=== PATIENT | male | born 1940 | race Caucasian/White ===

== ENCOUNTER → 2020-02-04 | Emergency (ER) | payer BC, OTHER ==
[~2020-02-04] VITALS: Ht 172.7 cm; Wt 113.4 kg
[~2020-02-04] MED LIST: CALCIUM CHLOR(10%) 100MG/ML 10ML SYRINGE IV ONE; DEXTROSE (50%) 50ML SYRG IV ONE; EPINEPHrine HCL 1 MG/10 ML SYRG IV ONE; SODIUM BICARBONATE 8.4% INJ 50ML SYRINGE IV ONE
== END | disposition expired ==
LOC: EDUNIT# 08:43 → EDSEX 08:53 → ER 08:53 → EDBD 08:53
DX: I46.9 Cardiac arrest, cause unspecified (principal); J96.90 Respiratory failure, unspecified, unspecified whether with hypoxia or hypercapnia; I11.0 Hypertensive heart disease with heart failure; I50.9 Heart failure, unspecified; I25.2 Old myocardial infarction
CPT/HCPCS: 31500; 92950; 99285; J0171; J7042